=== PATIENT | female | born 1955 | race Caucasian/White ===

== ENCOUNTER 2017-10-03 13:54 | Emergency (ER) | payer OTHER ==
[~2017-10-03] VITALS: Ht 167.6 cm; Wt 71.9 kg
[~2017-10-03 13:54] MED LIST: AMBIEN5 MG PO; ANTIVERT25 MG PO; ATROVENT H200 INHALA IH; CHANTIX1 EACH PO; CIPROFLOXACIN500 M1 PO; CLONIDINE HCL0.2 MG PO; CYMBALTA30 MG PO; DIAZEPAM5 MG PO; GUAIFENESIN400 MG PO; METOPROLOL SUCC50 MG PO; METRONIDAZOLE500 MG PO; MORPHINE SULFAT30 M2 PO; MYCOSTATIN 100,60 ML PO; NEURONTIN300 MG PO; NICOTINE PATCH1 EAC2 TD; NORCO 10/3251 TABLET PO; PERCOCET 5/31 TABLET PO; PREDNISONE20 MG PO; PROAIR HFA8.5 GM IH; QUESTRAN PACKET4 GM PO; SLEEP AID25 M2 PO; SPIRIVA RESPIMAT4 GM IH; SYMBICORT60 INHALAT IH; TIZANIDINE HCL4 MG PO; TRAMADOL HCL50 MG PO; TRAZODONE HCL50 MG PO; VITAMIN D-32000 UNI2 PO; ZETIA10 MG PO
[2017-10-03 14:33] LABS: HEMATOCRIT 35.6 % (36.0-46.0); MCH 29.6 PG (29.0-34.0); MEAN PLAT.VOLUME 8.7 uM^3 (9.5-12.4); PLATELET COUNT 255 K/uL (156-360); RBC DIS.WIDTH-CV 13.2 % (11.8-14.6); RBC DIS.WIDTH-SD 42.3 % (39-53); RED BLOOD COUNT 4.09 M/uL (3.80-5.20); WHITE BLOOD COUNT 9.3 K/uL (4.1-10.2)
[2017-10-03 14:45] LABS: CHLORIDE 96 mEq/L (99-109); POTASSIUM 4.2 mEq/L (3.7-5.4); SODIUM 136 mEq/L (136-147)
[2017-10-03 14:46] LABS: GLUCOSE 101 mg/dL (70-99)
[2017-10-03 14:48] LABS: ANION GAP 8 MEQ/L (2-14)
[2017-10-03 14:50] LABS: GFR ESTIMATE (CALCULATED) > 59 mL/min/
[2017-10-03 14:51] LABS: UREA NITROGEN (BUN) 7 mg/dL (9-23)
[2017-10-03 14:57] LABS: TROP-I INTERPRETATION NEGATIVE; TROPONIN-I < 0.01 ng/mL (0.0-0.30)
[2017-10-03 15:15] VITALS: BP 107/64
== END 2017-10-03 16:16 | disposition home or self-care (01) ==
LOC: EME 13:54
DX: S29.011A Strain of muscle and tendon of front wall of thorax, initial encounter (principal); M25.511 Pain in right shoulder; X50.0XXA Overexertion from strenuous movement or load, initial encounter; J44.9 Chronic obstructive pulmonary disease, unspecified; F03.90 Unspecified dementia, unspecified severity, without behavioral disturbance, psychotic disturbance, mood disturbance, and anxiety; F17.200 Nicotine dependence, unspecified, uncomplicated; Z71.6 Tobacco abuse counseling; F32.9 Major depressive disorder, single episode, unspecified; M79.7 Fibromyalgia; K21.9 Gastro-esophageal reflux disease without esophagitis; F41.9 Anxiety disorder, unspecified; Z88.1 Allergy status to other antibiotic agents; Z88.8 Allergy status to other drugs, medicaments and biological substances
CPT/HCPCS: 71020; 80048; 84484; 85027; 93005; 99281; 99284